=== PATIENT | female | born 1945 | race Caucasian/White ===

== ENCOUNTER → 2018-11-12 | Outpatient (CLI) | payer OTHER | LOC: BMCIMAGING 14:06 | PROVIDERS: ATTEND Radiology Diagnostic Radiology | DX: Z12.31 Encounter for screening mammogram for malignant neoplasm of breast (principal); Z13.820 Encounter for screening for osteoporosis; M85.89 Other specified disorders of bone density and structure, multiple sites; Z78.0 Asymptomatic menopausal state ==